=== PATIENT | female | born 1980 | race Caucasian/White ===

== ENCOUNTER → 2018-01-20 | Outpatient (CLI) | payer BC | LOC: COL.RAD 09:36 | DX: I10 Essential (primary) hypertension (principal); N13.2 Hydronephrosis with renal and ureteral calculous obstruction ==

== ENCOUNTER → 2018-03-12 | Outpatient (CLI) | payer BC | LOC: MC.RAD 09:28 | DX: Z12.31 Encounter for screening mammogram for malignant neoplasm of breast (principal) ==

== ENCOUNTER → 2019-03-22 | Outpatient (CLI) | payer BC | LOC: MC.RAD 10:17 | DX: Z12.31 Encounter for screening mammogram for malignant neoplasm of breast (principal) ==

== ENCOUNTER → 2020-03-23 | Outpatient (CLI) | payer BC | LOC: MC.RAD 13:53 | DX: Z12.31 Encounter for screening mammogram for malignant neoplasm of breast (principal) ==

== ENCOUNTER → 2021-05-01 | Outpatient (CLI) | payer BC | LOC: MC.RAD 09:15 | DX: Z12.31 Encounter for screening mammogram for malignant neoplasm of breast (principal) ==

== ENCOUNTER 2023-09-25 11:43 | Emergency (ER) | payer BC ==
[~2023-09-25] VITALS: Ht 157.5 cm; Wt 90.9 kg
[~2023-09-25 11:43] MED LIST: AMOXICILLIN 8751 TAB PO
[2023-09-25 11:46] VITALS: TEMP 98.4
[2023-09-25] MEDS ORDERED: hydrALAZINE 20 MG/ML 1 ML VIAL IV ONE (12:15)
[2023-09-25 12:26] LABS: BASO % 0.7 % (0.0-2.0); EOS # 0.1 K/mm3 (0.0-0.7); EOS % 1.7 % (0.0-4.0); GRAN # 3.2 K/mm3 (1.4-6.5); GRAN % 53.9 % (42.2-75.2); LYMPH # 2.1 K/mm3 (1.2-3.4); LYMPH % 35.1 % (20.0-51.0); MEAN CELL VOLUME 91 fl (80.0-100.0); MEAN CORPUSCULAR HEMOGLOBIN 31 pg (27-31); MEAN CORPUSCULAR HGB CONC 34 g/dl (33.0-37.0); MEAN PLATELET VOLUME 9.4 fl (7.4-10.4); MONO # 0.5 K/mm3 (0.1-0.6); MONO % 8.6 % (1.7-9.3); PLATELET COUNT 293 K/mm3 (130-400); RED BLOOD COUNT 4.84 M/mm3 (4.10-5.30); REDCELL DISTRIBUTION WIDTH-CV 13.2 % (11.5-14.5)
[2023-09-25 12:43] LABS: ALANINE AMINOTRANSFERASE 21 U/L (0-55); ALBUMIN 4.1 g/dL (3.5-5.0); ALKALINE PHOSPHATASE 100 U/L (40-150); ANION GAP 12 mmol/L (7-16); AST,SGOT 20 U/L (5-34); BILIRUBIN,TOTAL 0.5 mg/dL (0.2-1.2); BLOOD UREA NITROGEN 12 mg/dL (7-19); CALCIUM 9.9 mg/dL (8.4-10.2); CHLORIDE 105 mEq/L (98-107); CREATININE, serum 0.84 mg/dL (0.57-1.11); GLUCOSE 118 mg/dL (70-99); POTASSIUM 3.4 mEq/L (3.5-4.5); SODIUM 140 mEq/L (136-145); TOTAL PROTEIN 7.4 g/dl (6.2-8.1)
[2023-09-25] MEDS ORDERED: NS 1,000 ML IV ONE (12:45)
[2023-09-25 12:54] LABS: TROPONIN-I < 0.010 ng/mL (0.00-0.033)
[2023-09-25] MEDS ORDERED: NORVASC 10MG10 MG PO (13:15)
[2023-09-25 13:23] VITALS: BP 150/99; PULSE 98
== END 2023-09-25 13:29 | disposition home or self-care (01) ==
LOC: COL.ER 11:43
PROVIDERS: Personal Emergency Response Attendant
DX: I10 Essential (primary) hypertension (principal); R00.0 Tachycardia, unspecified; Z79.899 Other long term (current) drug therapy
CPT/HCPCS: J0360; J7030

== ENCOUNTER → 2023-10-31 | Outpatient (CLI) | payer BC ==
[~2023-10-31] MED LIST changes: +Albuterol 0.083% Neb Soln 2.5 MG/3 ML UD IH ONE; +NORVASC 10MG10 MG PO
== END ==
LOC: COL.CARD 08:22
DX: R06.09 Other forms of dyspnea (principal)